=== PATIENT | male | born 2000 | race Caucasian/White ===

== ENCOUNTER 2020-02-23 01:51 | Emergency (ER) | payer OTHER ==
[2020-02-23] MEDS ORDERED: DIPH/PERTUSS(ACELL)/TETANUS VAC/PF 0.5 ML SYR (>=10YO) IM ONE (03:02)
[2020-02-23] MEDS ORDERED: LIDOCAINE 2%/EPINEPHRINE INJ 20 ML VIAL INJ ONE ×2 (03:06→04:17)
--- NOTE | 2020-02-23 03:15 | ER Document Report ---
Entered by ELISE GOLDMAN SCRIBE 02/23/20 0305 Acting as scribe for:WAN HILLMAN IV, MD ED Wound - General Chief Complaint: Laceration Stated Complaint: LEFT CALF LACERATION Time Seen by Provider: 02/23/20 03:01 Mode of Arrival: Wheelchair Information source: Patient Notes: This 19 year old male patient presents to the ED today with complaints of laceration to the left calf that occurred just prior to arrival. Patient states that he sustained the laceration from a broken glass coffee table. Last tetanus shot is unknown. - Related Data Allergies/Adverse Reactions: No Known Allergies Allergy (Verified 02/23/20 02:16) Past Medical History - General Information source: Patient - Social History Smoking Status: Never Smoker Cigarette use (# per day): No Chew tobacco use (# tins/day): No Smoking Education Provided: No Family History: Reviewed & Not Pertinent Patient has suicidal ideation: No Patient has homicidal ideation: No Review of Systems - Review of Systems Constitutional: No symptoms reported EENT: No symptoms reported Cardiovascular: No symptoms reported Respiratory: No symptoms reported Gastrointestinal: No symptoms reported Genitourinary: No symptoms reported Musculoskeletal: See HPI, Other - Left calf pain Skin: See HPI, Other - Laceration Hematologic/Lymphatic: No symptoms reported Neurological/Psychological: No symptoms reported -: Yes All other systems reviewed and negative Physical Exam - Vital signs Vitals: Temp Pulse Resp BP Pulse Ox 99.1 F 73 14 174/75 H 100 02/23/20 01:56 02/23/20 01:56 02/23/20 01:56 02/23/20 01:56 02/23/20 01:56 - General General appearance: Alert In distress: None - HEENT Head: Normocephalic, Atraumatic Eyes: Normal Pupils: PERRL - Respiratory Respiratory status: No respiratory distress Chest status: Nontender Breath sounds: Normal Chest palpation: Normal - Cardiovascular Rhythm: Regular Heart sounds: Normal auscultation Murmur: No Friction rub: No Gallop: None auscultated - Abdominal Inspection: Normal Distension: No distension Bowel sounds: Normal Tenderness: Nontender - Abdomen soft Organomegaly: No organomegaly - Back Back: Normal, Nontender - Extremities General upper extremity: Normal inspection Calf: Laceration - Left calf - Neurological Neuro grossly intact: Yes Orientation: AAOx4 - Psychological Associated symptoms: Normal affect, Normal mood - Skin Skin irregularity: Laceration - 5 cm laceration noted to left calf that gapes about 2 cm wide in the middle Course - Re-evaluation Re-evalutation: 02/23/20 04:09 Diagnosis and treatment plan discussed with patient. All questions answered prior to discharging patient. Emergency signs and symptoms, reasons to return to the emergency department discussed with patient. Patient instructed to return to the ED in 14 days for suture removal. - Vital Signs Vital signs: Temp Pulse Resp BP Pulse Ox 99.1 F 73 14 174/75 H 100 02/23/20 02:11 02/23/20 01:56 02/23/20 01:56 02/23/20 01:56 02/23/20 01:56 Procedures - Laceration/Wound Repair Left Lateral Leg Time completed: 04:10 Wound length (cm): 5 Wound's Depth, Shape: Other - Into subcutaneous tissue; laceration has a slightly semilunar shape Laceration pre-procedure: Sterile PPE donned, Chloraprep applied, Sterile drapes applied Anesthetic type: 2% Lidocaine Volume Anesthetic (mLs): 8 Wound explored: Clean Irrigated w/ Saline (mLs): 30 Wound Repaired With: Sutures Suture Size/Type: 3:0, Prolene Number of Sutures: 15 - running Layer Closure?: Yes Deep Layer Suture Size/Type: 4:0, Other - Vicryl Number Deep Layer Sutures: 4 - simple interrupted Post-procedure wound care: Sterile dressing applied Post-procedure NV exam normal: Yes Complications: No Discharge - Discharge Clinical Impression: Laceration of leg Qualifiers: Encounter type: initial encounter Laterality: left Qualified Code(s): S81.812A - Laceration without foreign body, left lower leg, initial encounter Condition: Good Disposition: HOME, SELF-CARE Instructions: Antibiotic Ointment Protection (OM), Laceration Care (OM), Tetanus Immunization Given ([facility]) Additional Instructions: Return to the Emergency Department without delay if any worse. Return to the emergency department in 14 days for suture removal. HOME CARE INSTRUCTIONS & INFORMATION: Thank you for choosing us for your medical needs. We hope you're satisfied with the care you received. After you leave, you must properly care for your problem and, at the same time, observe its progress. Any condition can change. Some illnesses can change rapidly over hours or days. If your condition worsens, return to the Emergency Department or see your physician promptly. ABOUT YOUR X-RAYS AND EKG'S: If you had an EKG or X-rays taken, they have been read by the Emergency Physician. The X-rays and EKG's will also be read by a Radiologist or Sales Research Analyst within 24 hours. If discrepancies are noted, you will be notified by telephone. Please be certain the ED has a correct telephone number & address where you can be reached. Also, realize that some fractures or abnormalities do not show up on initial X-rays. If your symptoms continue, see your physician. ABOUT YOUR LABORATORY TEST: If you had laboratory tests, the results have been reviewed by the Emergency Physician. Some test results (for example cultures) may not be available for several days. You will be contacted if any test result shows you need additional treatment. Please be certain the ED has a correct telephone number and address where you can be reached. ABOUT YOUR MEDICATIONS: You will receive instructions on how to take your medicine on the prescription label you receive. Additional information may be provided by the Pharmacy. If you have questions afterwards, call the ED for clarification or further instructions. Some prescribed medications may cause drowsiness. Do not perform tasks such as driving a car or operating machinery without consulting your Pharmacist. If you feel you need a refill of pain medication, your condition will need re-evaluation. Please do not call for a refill of any medication. ABOUT YOUR SIGNATURE: Signature of this document acknowledges to followin. Understanding that you received emergency treatment and that you may be released before al medical problems are known or treated. Please be certain the ED has a correct phone number & address where you can be reached. 2. Acknowledgement that you will arrange for follow-up care as recommended. 3. Authorization for the Emergency Physician to provide information to your follow-up Physician in order to maximize your care. AT ANY TIME, IF YOUR SYMPTOMS CHANGE SIGNIFICANTLY OR WORSEN OR YOU DEVELOP NEW SYMPTOMS, RETURN TO THE EMERGENCY DEPARTMENT IMMEDIATELY FOR RE-EVALUATION. OUR GOAL IS TO PROVIDE EXCELLENT MEDICAL CARE! WE HOPE THAT WE HAVE MET YOUR EXPECTATIONS DURING YOUR EMERGENCY DEPARTMENT VISIT AND THAT YOU FEEL YOU HAVE RECEIVED EXCELLENT CARE! I personally performed the services described in the documentation, reviewed and edited the documentation which was dictated to the scribe in my presence, and it accurately records my words and actions.
[2020-02-23] MEDS ORDERED: LIDOCAINE 2%/EPINEPHRINE INJ 20 ML VIAL ONE (03:56)
[2020-02-23] MEDS ORDERED: BACITRACIN ZINC OINTMENT 15 GM TP ONE (04:23)
[2020-02-23 04:35] VITALS: BP 120/67
== END 2020-02-23 04:35 | disposition home or self-care (01) ==
LOC: ER 01:51
PROC: 0HQLXZZ Repair Left Lower Leg Skin, External Approach (ICD-10-PCS; principal; 2020-02-23)
DX: S81.812A Laceration without foreign body, left lower leg, initial encounter (principal); W25.XXXA Contact with sharp glass, initial encounter
CPT/HCPCS: 99282; 90471; 90715; 12002; J3490